=== PATIENT | male | born 1940 | race Caucasian/White ===

== ENCOUNTER → 2020-07-06 | Outpatient (CLI) | payer OTHER, BC | LOC: SJCVCIMAG 07:41 | PROVIDERS: ATTEND Nuclear Medicine Nuclear Cardiology | DX: I83.91 Asymptomatic varicose veins of right lower extremity (principal); C18.9 Malignant neoplasm of colon, unspecified; I82.890 Acute embolism and thrombosis of other specified veins; Z79.899 Other long term (current) drug therapy; Z87.891 Personal history of nicotine dependence ==

== ENCOUNTER → 2020-07-06 | Outpatient (CLI) | payer OTHER | LOC: CAT 16:09 | PROVIDERS: ATTEND Nuclear Medicine Nuclear Cardiology | DX: Z13.6 Encounter for screening for cardiovascular disorders (principal); E78.00 Pure hypercholesterolemia, unspecified; I25.10 Atherosclerotic heart disease of native coronary artery without angina pectoris ==

== ENCOUNTER → 2020-09-08 | Outpatient (CLI) | payer OTHER, BC | LOC: ULTRA 10:49 | PROVIDERS: ATTEND Internal Medicine Hematology & Oncology | DX: I82.890 Acute embolism and thrombosis of other specified veins (principal); C18.9 Malignant neoplasm of colon, unspecified ==

== ENCOUNTER → 2021-11-21 | Outpatient (CLI) | payer OTHER, BC | LOC: SJCVCIMAG 07:43 | PROVIDERS: ATTEND Family Medicine | DX: I08.3 Combined rheumatic disorders of mitral, aortic and tricuspid valves (principal); I48.91 Unspecified atrial fibrillation ==